=== PATIENT | male | born 1995 | race African-American/Black ===

== ENCOUNTER 2017-04-16 23:32 | Emergency (ER) | payer OTHER ==
[~2017-04-16] VITALS: Ht 167.6 cm; Wt 113.4 kg
== END 2017-04-17 01:23 | disposition home or self-care (01) ==
LOC: ED 23:32
DX: S93.402A Sprain of unspecified ligament of left ankle, initial encounter (principal); X50.1XXA Overexertion from prolonged static or awkward postures, initial encounter; Y92.89 Other specified places as the place of occurrence of the external cause
CPT/HCPCS: 99282; J1885

== ENCOUNTER 2017-07-15 21:48 | Emergency (ER) | payer OTHER ==
[~2017-07-15] VITALS: Ht 167.6 cm; Wt 108.0 kg
== END 2017-07-15 23:01 | disposition home or self-care (01) ==
LOC: ED 21:48
DX: M54.5 Low back pain (principal); R25.2 Cramp and spasm; R20.0 Anesthesia of skin
CPT/HCPCS: 99281

== ENCOUNTER 2017-07-16 16:33 | Emergency (ER) | payer OTHER ==
[~2017-07-16] VITALS: Ht 167.6 cm; Wt 108.0 kg
== END 2017-07-16 17:40 | disposition home or self-care (01) ==
LOC: ED 16:33
DX: M62.830 Muscle spasm of back (principal)
CPT/HCPCS: 99281